=== PATIENT | female | born 1965 | race Caucasian/White ===

== ENCOUNTER 2023-08-14 11:02 | Emergency (ER) | payer OTHER, SELFPAY ==
[2023-08-14 11:10] VITALS: BP 158/117
[2023-08-14 11:21] VITALS: BP 143/117
[2023-08-14 11:31] VITALS: BMI 27.2
--- NOTE | 2023-08-14 11:37 | ED.GENMED ---
History of Present Illness
<Patricia eD Leon PA-C - Last Filed: 08/14/23 16:28>
General
Chief Complaint: Pneumonia Symptoms
Source: patient
Exam Limitations: none
Time Seen by Provider: 08/14/23 11:37
Nursing documentation reviewed up to this point in time: agreed with
Travel History
Have you had any contact with someone who has COVID-19?: No
Do you have any symptoms of coronavirus? Fever > 100 degrees, chills, cough, shortness of breath, sore throat, loss of taste or smell, muscle aches, or headache?: No
History of Present Illness
History of Present Illness:
This is a 57 y/o female with a PMH of HTN, hypothyroidism, early COPD presenting to the emergency department today with concerns of shortness of breath, cough, sore throat for the past 7 days. Patient states that around a week ago, she started to
develop a cough and a fever. At times, she would feel a sensation where she felt like she could not breath well. She went to see her primary care provider who thought it was viral and than went to urgent care where they did a chest x-ray and patient
was diagnosed with pneumonia and started on doxycycline and prednisone. Patient states that she has been using the doxycycline and prednisone for around 6 days now and feels no improvement in her symptoms. Patient also has had tried albuterol
inhaler with no relief. Patient denies syncopal episodes, dizziness, chest pain, leg swelling, recent long distance travel, back pain, abdominal pain, nausea or vomiting.
Review of Systems
<Patricia De Leon PA-C - Last Filed: 08/14/23 16:28>
Review of Systems
All Other Systems: ROS reviewed and negative except as documented in HPI and ROS
Phy Exam
<Patricia De Leon PA-C - Last Filed: 08/14/23 16:28>
Physical Exam
Physical Exam:
General: Patient is well appearing and in no acute distress; non-toxic
Skin: Warm and dry, no rashes or lesions
Head: Normocephalic, atraumatic
Eyes: Sclera non-icteric. EOMs intact. PERRLA.
Cardiac: Regular rate and rhythm, no murmurs
Peripheral Vascular: No lower extremity swelling or edema
Pulm: No wheezes, rales, rhonchi heard on exam
Abdomen: No abdominal tenderness to palpation
Neuro: CN II-XII intact, no focal neurologic deficits.
Psychiatric: Appropriate mood and affect.
Course
<Patricia De Leon PA-C - Last Filed: 08/14/23 16:28>
Orders/Labs/Results
Orders:
Orders
08/14/23 11:25
CR Chest - 2 Views Urgent
Comment:
Reason For Exam: cough with shortness of breath
08/14/23 11:27
Basic Metabolic Panel Urgent
COVID-19 Antigen Urgent
Source: Nasal Swab
Complete Blood Count/With Diff Urgent
Influenza A+B Rapid Molecular Urgent
GHADA Source: Nasal Swab
Specimen Description:
Date Specimen was Collected: 08/14/23
Time Specimen was Collected: 11:26
Rapid Strep Group A Urgent
GHADA Source: Throat/Pharynx
Specimen Description:
Date Specimen was Collected: 08/14/23
Time Specimen was Collected: 11:26
08/14/23 12:14
Ipratropium/Albuterol Sulfate [Duoneb] 3 ml INH R NOW STA
Abnormal Lab Results
08/14/23
11:27
Abs Immat Gran (auto) 0.3 H 10^3/uL
(0-0.05)
Immature Gran % 3.5 H %
(0-0.5)
BUN 18 H mg/dl
(7-17)
Creatinine 0.5 L mg/dL
(0.6-1.0)
Glucose 142 H mg/dl
(70-99)
08/14/23 11:27
08/14/23 11:27
Vital Signs
Initial and Last Documented VS:
Initial Vital Signs
Temp Pulse Resp BP Pulse Ox
99.8 F 88 16 158/117 98
08/14/23 11:10 08/14/23 11:10 08/14/23 11:10 08/14/23 11:10 08/14/23 11:10
Last Documented Vital Signs
Temp Pulse Resp BP Pulse Ox
99.8 F 88 16 113/82 94
08/14/23 11:10 08/14/23 11:10 08/14/23 11:10 08/14/23 13:00 08/14/23 14:00
<eHrman Harvey, DO - Last Filed: 08/14/23 13:51>
Orders/Labs/Results
Orders:
Orders
08/14/23 11:25
CR Chest - 2 Views Urgent
Comment:
Reason For Exam: cough with shortness of breath
08/14/23 11:27
Basic Metabolic Panel Urgent
COVID-19 Antigen Urgent
Source: Nasal Swab
Complete Blood Count/With Diff Urgent
Influenza A+B Rapid Molecular Urgent
GHADA Source: Nasal Swab
Specimen Description:
Date Specimen was Collected: 08/14/23
Time Specimen was Collected: 11:26
Rapid Strep Group A Urgent
GHADA Source: Throat/Pharynx
Specimen Description:
Date Specimen was Collected: 08/14/23
Time Specimen was Collected: 11:26
08/14/23 12:14
Ipratropium/Albuterol Sulfate [Duoneb] 3 ml INH R NOW STA
Abnormal Lab Results
08/14/23
11:27
Abs Immat Gran (auto) 0.3 H 10^3/uL
(0-0.05)
Immature Gran % 3.5 H %
(0-0.5)
BUN 18 H mg/dl
(7-17)
Creatinine 0.5 L mg/dL
(0.6-1.0)
Glucose 142 H mg/dl
(70-99)
08/14/23 11:27
08/14/23 11:27
Vital Signs
Initial and Last Documented VS:
Initial Vital Signs
Temp Pulse Resp BP Pulse Ox
99.8 F 88 16 158/117 98
08/14/23 11:10 08/14/23 11:10 08/14/23 11:10 08/14/23 11:10 08/14/23 11:10
Last Documented Vital Signs
Temp Pulse Resp BP Pulse Ox
99.8 F 88 16 113/82 94
08/14/23 11:10 08/14/23 11:10 08/14/23 11:10 08/14/23 13:00 08/14/23 14:00
Teresalt;Patricia De Leon PA-C - Last Filed: 08/14/23 16:28>
MDM/Problems Addressed
Differential Diagnosis Includes:
Pneumonia, acute bronchitis, laryngitis, COPD
MDM/Problems Addressed:
shortness of breath, cough/cold symptoms:
This is a 57 y/o female with a PMH of HTN, hypothyroidism, early COPD presenting to the emergency department today with concerns of shortness of breath, cough, sore throat for the past 7 days. Patient states that around a week ago, she started to
develop a cough and a fever. Saw urgent care and was diagnosed with pneumonia and put on doxycycline. Patient was on it for 6 days with no relief. Chest x-ray today was negative for pneumonia, CBC and CMP unremarkable. At this time, patient
likely has an acute viral bronchitis. Patient did have improvement of her symptoms with DuoNeb treatment. Will treat with a short burst of prednisone and have her continue to use albuterol inhaler at home. Follow-up with primary.
Chronic conditions affecting care:
htn, hypothyroid, early COPD
<Patricia De Leon PA-C - Last Filed: 08/14/23 16:28>
*Radiology
Radiology exam reviewed: preliminary read by ED provider (no acute cardiopulmonary abnormality )
*Pulse Oximetry
Patient hypoxic: no
*Critical Care Note
Total Time (30-74mins, 75-104mins- exclusive of procedures): Not Applicable
Data Reviewed
Review of Other/Old Records Reveals: Records (no previous ER visit to review ) and Discharge Summary (no discharge summary to review )
Source: patient and records
<Patricia De Leon PA-C - Last Filed: 08/14/23 16:28>
Patient Management
Escalation/DeEscalation of care consider admission/obs:
admission not indicated
ED Attending Note
<FLAQUITA Garibay Last Filed: 08/14/23 16:28>
-
Portions of this chart may have been created with voice recognition software.� Occasional wrong word or��sound alike� substitutions may have occurred due to the inherent limitations of voice recognition software.
<Herman Harvey DO - Last Filed: 08/14/23 13:51>
ED Attending Note
Patient seen and examined by attending physician: Yes
I performed a history and physical exam of patient and discussed management with resident, I reviewed resident's note and agree with documented findings and plan of care.: Yes
ED Attending Note:
I have reviewed and agree with history and treatment plan by Patricia De Leon. My exam reveals 57-year-old female with clear lungs, intermittent cough. Chest x-ray no acute findings. Suspect bronchitis. Will treat with short burst of prednisone,
and albuterol inhaler. Patient will finish her doxycycline.
Discharge Plan
Departure
Patient Disposition: Home (Routine Discharge)
Date of Disposition: 08/14/23
Time of Disposition: 13:52
Patient with high blood pressure during this ER visit?: Yes
Condition: Good
Discharge Problem:
Acute bronchitis
Instructions: Acute bronchitis, BLOOD PRESSURE
Prescriptions:
New
albuterol sulfate [ProAir HFA] 90 mcg/actuation HFA aerosol inhaler
1 puff inhalation Q4HPRN PRN (Reason: shortness of breath) Qty: 6.7 0RF
prednisone 50 mg tablet
50 mg PO DAILY 4 Days Qty: 4 0RF
Referrals:
Tay Hilliard DO [Family Provider] -
Activity Restrictions/Additional Instructions:
Please follow up with your primary care provider in a week for reassessment.
Please return to the emergency department should you experience chest pain, syncopal episodes, dizziness, lightheadedness, increasing shortness of breath, or any other concerning signs or symptoms.
Interventions
Interventions:
*Risk Screen - Suicide Last Done: 08/14/23 11:31
*General Assessment Last Done: 08/14/23 11:31
*Neglect/Abuse Screening Last Done: 08/14/23 11:31
ED- Fall Risk Assessment Last Done: 08/14/23 11:31
*ED COVID-19 Vaccine History Last Done: 08/14/23 11:10
*Nursing Disposition Last Done: 08/14/23 14:46
ED- Cardiac Assessment Last Done: 08/14/23 11:31
ED- Pulmonary Assessment Last Done: 08/14/23 11:31
Discharge Date and Time
Discharge Date/Time: 08/14/23 14:46
Print Language: BELIZEAN
[2023-08-14 11:39] LABS: % Basophils 0.5 % (0-2); % Eosinophils 1.8 % (0-6); % Immature Granulocytes 3.5 % (0-0.5); % Lymphocytes 31.9 % (20.5-51.1); % Monocytes 5.9 % (1.7-9.3); % Neutrophils 56.4 % (42.2-75.2); Absolute Basophils 0.1 10^3/uL (0-0.2); Absolute Eosinophils 0.2 10^3/uL (0-0.7); Absolute Immature Granulocytes 0.3 10^3/uL (0-0.05); Absolute Lymphocytes 3.1 10^3/uL (1.2-3.4); Absolute Monocytes 0.6 10^3/uL (0.1-0.6); Absolute Neutrophils 5.4 10^3/uL (1.4-6.5); Hematocrit 38.2 % (37.0-47.0); Hemoglobin 13.2 g/dL (12.0-16.0); Mean Corp Hgb Conc. 34.6 g/dL (33.0-37.0); Mean Corpuscular Hgb 30.6 pg (27.0-31.0); Mean Corpuscular Volume 88.4 fL (81.0-99.0); Mean Platelet Volume 9.5 fL (7.4-10.4); Nucleated Red Blood Cells % 0 %; Platelet Count 317 10^3/uL (130-400); Red Blood Cell Count 4.32 10^6/uL (4.20-5.40); Red Cell Dist. Width 12.7 % (11.5-14.5); White Blood Cell Count 9.7 10^3/uL (4.8-10.8)
[2023-08-14 11:53] LABS: COVID-19 Antigen Negative (Negative)
[2023-08-14 12:00] LABS: Blood Urea Nitrogen 18 mg/dl (7-17); Calcium 8.9 mg/dl (8.4-10.2); Carbon Dioxide 27 mmol/L (22-30); Chloride 102 mmol/L (98-107); Estimated Creatinine Clearance 103 ml/min; Glucose 142 mg/dl (70-99); Sodium 138 mmol/L (135-145); eGFR > 60.00
[2023-08-14] MEDS: DUONEB 3 ML INH (12:50)
[2023-08-14 12:56] VITALS: BP 134/83
[2023-08-14 13:00] VITALS: BP 113/82
== END 2023-08-14 14:46 | disposition home or self-care (01) ==
LOC: EMR 11:02
PROVIDERS: EMERGENCY PHYSICIAN Emergency Medicine; FAMILY PHYSICIAN Family Medicine
DX: J20.9 Acute bronchitis, unspecified (principal); Z11.52 Encounter for screening for COVID-19; I10 Essential (primary) hypertension; J44.0 Chronic obstructive pulmonary disease with (acute) lower respiratory infection; E03.9 Hypothyroidism, unspecified; Z88.8 Allergy status to other drugs, medicaments and biological substances
CPT/HCPCS: 99283; 94640; 71046; 80048; 85025; 87070; 87502; 87811; 87880

== ENCOUNTER 2024-04-13 23:40 | Emergency (ER) | payer OTHER, SELFPAY ==
[2024-04-13 23:43] VITALS: BP 156/95
[2024-04-13 23:57] VITALS: BMI 30.6
[2024-04-14] VITALS: BP 152/84
--- NOTE | 2024-04-14 00:34 | ED.GENMED ---
History of Present Illness
General
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
Source: patient
Exam Limitations: none
Time Seen by Provider: 04/14/24 00:28
History of Present Illness
History of Present Illness:
58-year-old female presents emergency ferment due to vaginal bleeding. She had a LEEP performed this morning at [facility]. She called them but received no answer and came to [place]. She is soaking through a pad every 15 minutes.
Past History
Past History
ED Past Medical History: HTN and Other (Cervical dysplasia)
ED Past Surgical History: Other (Hernia)
Social History
Tobacco: Non-smoker
Alcohol: None
Drug: None
Review of Systems
Review of Systems
Allergies reviewed?: Yes
All Other Systems: Not applicable
Constitutional: Reports no symptoms
EENT: Reports no symptoms
Respiratory: Reports no symptoms
Cardiac: Reports no symptoms
ABD/GI: Reports no symptoms
: Reports bleeding
Musculoskeletal: Reports no symptoms
Skin: Reports no symptoms
Neurological: Reports no symptoms
Endocrine: Reports no symptoms
Hematologic/Lymphatic: Reports no symptoms
Psychiatric: Reports no symptoms
Phy Exam
Physical Exam
Physical Exam:
Physical Exam
General: Afebrile
Neck: supple. no meningeal signs. normal posterior pharynx
Heart: s1/s2 regular rate and rhythm, no murmur. equal radial
pulses.
HEENT: Pupils equal round reactive to light, EOMI
Lungs: no acute respiratory distress. clear bilaterally
Abdomen: normal bowel sounds. not tender. no CVAT
Neuro: alert and oriented. no focal neurological deficits cranial nerves II through XII intact
Skin: no rash
Psychiatric: well kept. interactive and cooperative
Extremities: no edema. no calf tenderness. negative homans. good distal pulses
Genitourinary Exam Female
Exam Female: vaginal bleeding
Vaginal Exam: blood
Vaginal Bleeding: clots and moderate
Visual exam of cervix: other (Difficult to visualize)
Uterus: other (Uterine prolapse)
Course
Orders/Labs/Results
Orders:
Orders
04/14/24 00:43
Cardiac Monitoring- Treatment ONCE
IV Insert/Care/Rem.- Treatment PRN
Pulse Ox/cont/shift [RESP] Stat
Quantity: 1
04/14/24 00:48
Type+Screen Urgent
Basic Metabolic Panel Urgent
Complete Blood Count/With Diff Urgent
PTT Urgent
Prothrombin Time Urgent
04/14/24 01:15
ABO2 Routine
BBK Wristband Number:
Associate notified that ABO2 has been ordered: [id number]
Date: 04/14/24
Time: 01:07
[facility]ail Pharmacy Merchandiser ID: [id number]
04/14/24 01:45
Ferric Subsulfate [Monsel's] 1 ml TOPICAL ONCE ONE
Abnormal Lab Results
04/14/24
00:48
WBC 11.1 H 10^3/uL
(4.8-10.8)
Abs Immat Gran (auto) 0.1 H 10^3/uL
(0-0.05)
Absolute Neuts (auto) 8.9 H 10^3/uL
(1.4-6.5)
Neutrophils % 80.3 H %
(42.2-75.2)
Lymphocytes % 15.2 L %
(20.5-51.1)
BUN 19 H mg/dl
(7-17)
Glucose 117 H mg/dl
(70-99)
04/14/24 00:48
04/14/24 00:48
Vital Signs
Initial and Last Documented VS:
Initial Vital Signs
Temp Pulse Resp BP Pulse Ox
97.7 F 73 18 156/95 97
04/13/24 23:43 04/13/24 23:43 04/13/24 23:43 04/13/24 23:43 04/13/24 23:43
Last Documented Vital Signs
Temp Pulse Resp BP Pulse Ox
97.7 F 90 16 165/99 99
04/13/24 23:43 04/14/24 01:00 04/14/24 01:00 04/14/24 01:00 04/14/24 00:52
MDM/Problems Addressed
Differential Diagnosis Includes:
Vaginal bleeding
MDM/Problems Addressed:
58-year-old female with vaginal bleeding after LEEP, improved after insertion of Monsel solution. Will observe, and patient will be reevaluated by Dr. Rosario.
Chronic conditions affecting care: Other (Cervical dysplasia)
*Pulse Oximetry
Patient hypoxic: no
Patient Management
Social determinants of health affecting care: Living situation and Strong social support
Discussion with other providers: Production Support Developer (MILK INSPECTOR)
ED Attending Note
-
Portions of this chart may have been created with voice recognition software.� Occasional wrong word or��sound alike� substitutions may have occurred due to the inherent limitations of voice recognition software.
Discharge Plan
Departure
Condition: Good
Discharge Problem:
S/P LEEP, Vaginal bleeding
Instructions: Loop Electrosurgical Excision Procedure
Prescriptions:
No Action
albuterol sulfate [ProAir HFA] 90 mcg/actuation HFA aerosol inhaler
1 puff inhalation Q4HPRN PRN (Reason: shortness of breath) Qty: 6.7 0RF
prednisone 50 mg tablet
50 mg PO DAILY 4 Days Qty: 4 0RF
Referrals:
Len Christian II, MD [Family Provider] - Call in 1-3 days for appt
Interventions
Interventions:
*Risk Screen - Suicide Last Done: 04/13/24 23:43
*General Assessment Last Done: 04/13/24 23:57
*Neglect/Abuse Screening Last Done: 04/13/24 23:43
ED- Fall Risk Assessment Last Done: 04/13/24 23:57
*ED COVID-19 Vaccine History Last Done: 04/13/24 23:57
ED-Female Genitourinary Assessment Last Done: 04/13/24 23:57
Discharge Date and Time
Print Language: URDU
[2024-04-14 01:00] VITALS: BP 165/99
[2024-04-14 01:07] LABS: % Basophils 0.1 % (0-2); % Immature Granulocytes 0.5 % (0-0.5); % Lymphocytes 15.2 % (20.5-51.1); % Monocytes 3.9 % (1.7-9.3); % Neutrophils 80.3 % (42.2-75.2); Absolute Immature Granulocytes 0.1 10^3/uL (0-0.05); Absolute Lymphocytes 1.7 10^3/uL (1.2-3.4); Absolute Monocytes 0.4 10^3/uL (0.1-0.6); Absolute Neutrophils 8.9 10^3/uL (1.4-6.5); Hematocrit 39.7 % (37.0-47.0); Hemoglobin 13.3 g/dL (12.0-16.0); Mean Corp Hgb Conc. 33.5 g/dL (33.0-37.0); Mean Corpuscular Hgb 30.6 pg (27.0-31.0); Mean Corpuscular Volume 91.3 fL (81.0-99.0); Mean Platelet Volume 10.1 fL (7.4-10.4); Nucleated Red Blood Cells % 0 %; Platelet Count 276 10^3/uL (130-400); Red Blood Cell Count 4.35 10^6/uL (4.20-5.40); Red Cell Dist. Width 12.7 % (11.5-14.5); White Blood Cell Count 11.1 10^3/uL (4.8-10.8)
[2024-04-14 01:17] LABS: APTT 27.3 Sec (23.4-35.0); INR 0.96; PT 13.1 Sec (11.4-14.6)
[2024-04-14 02:00] LABS: Blood Urea Nitrogen 19 mg/dl (7-17); Calcium 9.5 mg/dl (8.4-10.2); Carbon Dioxide 28 mmol/L (22-30); Chloride 103 mmol/L (98-107); Estimated Creatinine Clearance 104 ml/min; Glucose 117 mg/dl (70-99); Potassium 4.3 mmol/L (3.5-5.1); Sodium 140 mmol/L (135-145); eGFR > 60.00
[2024-04-14] MEDS: MONSEL'S 1 ML TOPICAL (02:10)
[2024-04-14 02:12] VITALS: BP 149/91
--- NOTE | 2024-04-14 02:24 | CON.MD ---
Consultation - Medical
-
Consult: vaginal bleeding after LEEP
HPI: Patient is a 58yo who presents to the ED with heavy vaginal bleeding. She had a LEEP done this morning at [facility] by Dr. Christian. She said she went home and was doing well, but then around 430pm she started having heavy
vaginal bleeding. She says she was soaking through a pad every 15 minutes. She was not going to come to the hospital because she thought it was going to stop, but her son told her she should get evaluated. She said she had the LEEP for cervical
dysplasia and has plans to get a hysterectomy in the future. She said she is getting the hysterectomy for history of abnormal Pap smears and getting a cystocele and rectocele repaired at the time of the hysterectomy. She had a LEEP in the past and
did not have any issues afterwards. She denies dizziness, lightheadedness, chest pain or shortness of breath. She took ibuprofen for pain once this afternoon. She has not taken any blood thinners or had problems with bleeding in the past
ROS otherwise negative unless noted in the HPI
PMHx: HTN, hypothyroid
Meds: Synthroid, BP meds
Surghx: LEEP, hernia repair
All: LAMBERT inhibitors, levofloxacin, atorvastatin, lisinopril
Socialhx: occ etoh use, denies tobacco or illicit drug use
Famhx: non-contributory
O:
BP 149/91, P 95, RR 20, Temp 97.7
General: well appearing
Cardio: regular
Pulm: no increased work of breathing
Abd: soft, nontender
SSE: after clot removed from vaginal vault, entire cervix visualized, oozing from entire LEEP bed noted, worse from the posterior cervix, Monsels solution applied and cervix watched for several minutes with no further oozing or bleeding
H/H 13.3/39.7
A/P: 58yo presents with heavy vaginal bleeding s/p LEEP
- Patient hemodynamically stable. H/H 13.3/39.7. Vital signs stable
- Spoke with Dr. Christian and he says the LEEP was uncomplicated. It was performed because he was not able to see the transformation zone. Discussed trying to control bleeding with Monsel's in the ED and if not controlled, plan to go to the OR for
exam under anesthesia.
- Oozing noted from entire LEEP bed, worse from the posterior cervix. Monsel's solution applied and oozing/bleeding stopped. Cervix was watched for several minutes with no further oozing
- Patient monitored for 2 hours after Monsel's applied and had no further bleeding. She did get up to walk around and use the bathroom and also had no bleeding. After I checked on the patient and she was getting ready for discharge home, she went to
the bathroom to change and noticed some blood trickling. A gentle speculum exam was performed and cervix appeared hemostatic with no active bleeding. The cervix was watched for several minutes and there was still was no active bleeding or oozing.
- Stable for DC home. Discharge instructions and strict return precautions discussed and all questions answered. She was instructed to call Dr. Christian's office today to schedule follow up.
30 minutes spent with patient, reviewing the chart, and documenting
[2024-04-14 03:00] VITALS: BP 123/75
[2024-04-14 03:56] VITALS: BP 145/79
== END 2024-04-14 04:18 | disposition home or self-care (01) ==
LOC: EMR 23:40
PROVIDERS: EMERGENCY PHYSICIAN Emergency Medicine; FAMILY PHYSICIAN Obstetrics & Gynecology Gynecologic Oncology; OTHER PHYSICIAN Student in an Organized Health Care Education/Training Program
DX: N93.9 Abnormal uterine and vaginal bleeding, unspecified (principal); Z98.890 Other specified postprocedural states
CPT/HCPCS: 99283; 80048; 85025; 85610; 85730; 86850; 86900; 86901